=== PATIENT | male | born 1975 | race Caucasian/White ===

== ENCOUNTER 2020-02-07 20:34 | Emergency (ER) | payer MEDICAID ==
[~2020-02-07] VITALS: Ht 160 cm; Wt 75.0 kg
[2020-02-07 20:41] VITALS: Ht 160 cm; Wt 75.0 kg
[2020-02-07] MEDS ORDERED: LISINOPRIL20 MG PO (20:42)
[2020-02-07] MEDS ORDERED: NEURONTIN800 MG (20:42)
[2020-02-07] MEDS ORDERED: LANTUS INS100 UNITS/ (20:43)
[2020-02-07] MEDS ORDERED: NOVOLOG100 UNIT/1 (20:43)
[2020-02-07] MEDS ORDERED: LANTUS INS100 UNITS/ SQ (21:05)
[2020-02-07 23:11] VITALS: BP 132/78
== END 2020-02-07 23:11 | disposition home or self-care (01) ==
LOC: D.ER 20:34
DX: E11.65 Type 2 diabetes mellitus with hyperglycemia (principal); I10 Essential (primary) hypertension; E11.40 Type 2 diabetes mellitus with diabetic neuropathy, unspecified; Z79.4 Long term (current) use of insulin; Z72.0 Tobacco use